=== PATIENT | female | born 1980 | race Caucasian/White ===

== ENCOUNTER 2018-02-26 11:40 | Emergency (ER) | payer OTHER ==
[2018-02-26 12:34] VITALS: BP 146/83; PULSE 79; TEMP 99.1; BMI 35.3
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
[2018-02-26] MEDS ORDERED: IBUPROFEN 600 MG TABLET (FP) PO ONE ×2 (13:27→13:29)
[2018-02-26] MEDS ORDERED: AMOX TR/POT CLAV 875MG/125MG TABLETS (FP) PO ONE (13:37)
[2018-02-26 13:50] LABS: BASO % 0.7 % (0-2.0); EOS % 1.3 % (0-4.5); HEMATOCRIT 32.3 % (32.4-45.2); HEMOGLOBIN 9.9 GM/dL (10.7-15.3); MCH 20.8 pg (25.7-33.7); MCHC 30.5 g/dl (32.0-36.0); MEAN CELL VOLUME 68.3 fl (80-96); MEAN PLT VOLUME 8.6 fl (7.5-11.1); PLATELET COUNT 293 K/MM3 (134-434); RBC 4.73 M/mm3 (3.60-5.2); RDW 26.1 % (11.6-15.6); WHITE BLOOD COUNT 6.8 K/mm3 (4.0-10.0)
[2018-02-26] MEDS ORDERED: ACETAMINOPHEN 500 MG TABLET (FP) ONE (13:50)
[2018-02-26 14:17] LABS: ALBUMIN 4.1 g/dl (3.4-5.0); ALK PHOS 73 U/L (45-117); ANION GAP 6 MMOL/L (8-16); BILIRUBIN,TOTAL 0.3 mg/dL (0.2-1); BLOOD UREA NITROGEN 11 mg/dL (7-18); CALCIUM 8.8 mg/dL (8.5-10.1); CHLORIDE 108 mmol/L (98-107); CO2 24 mmol/L (21-32); GLUCOSE,RANDOM 78 mg/dL (74-106); SGOT/AST 28 U/L (15-37); SGPT/ALT 28 U/L (13-61); SODIUM 139 mmol/L (136-145); TOT PROT 7.8 g/dl (6.4-8.2)
[2018-02-26] MEDS ORDERED: AMOX TR/POT CLAV 875MG/125MG TABLETS (FP) ONE (14:18)
[2018-02-26 14:40] LABS: ANISOCYTOSIS 1+; MACROCYTOSIS 1+; OVALOCYTE 1+
[2018-02-26] MEDS ORDERED: DIPHTH,PERTUSS(ACELL),TET 0.5 ML DISP.SYRIN IM ONE (15:52)
[2018-02-27 08:09] LABS: HBsAG SCREEN Negative (Negative)
== END 2018-02-26 16:21 | disposition home or self-care (01) ==
LOC: JERFT 11:40
PROC: 3E0234Z Introduction of Serum, Toxoid and Vaccine into Muscle, Percutaneous Approach (ICD-10-PCS; principal; 2018-02-26)
DX: S01.511A Laceration without foreign body of lip, initial encounter (principal); S61.451A Open bite of right hand, initial encounter; Y04.1XXA Assault by human bite, initial encounter; Y93.89 Activity, other specified; Y92.89 Other specified places as the place of occurrence of the external cause; Y99.8 Other external cause status; Y07.03 Male partner, perpetrator of maltreatment and neglect; D64.9 Anemia, unspecified
CPT/HCPCS: 36415; 73130-TC-RT-FY; 80053; 85025; 86317; 86803; 87340; 87389; 90715; 99281-25

== ENCOUNTER 2018-07-02 01:06 | Emergency (ER) | payer OTHER ==
[2018-07-02 01:23] VITALS: TEMP 97.9; BMI 28.7
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
[2018-07-02 02:14] VITALS: BP 113/66; PULSE 84
== END 2018-07-02 02:14 | disposition home or self-care (01) ==
LOC: JER 01:06
DX: T60.2X1A Toxic effect of other insecticides, accidental (unintentional), initial encounter (principal); R05 Cough; R06.02 Shortness of breath; Y92.038 Other place in apartment as the place of occurrence of the external cause
CPT/HCPCS: 99283-25

== ENCOUNTER 2018-11-19 03:56 | Emergency (ER) | payer OTHER ==
[2018-11-19 04:41] VITALS: TEMP 98.3
--- NOTE | 2018-11-19 04:49 | PDOC ---
Attending Attestation - Resident Resident Name: Shin Lopez - ED Attending Attestation I have performed the following: I have examined & evaluated the patient, The case was reviewed & discussed with the resident, I agree w/resident's findings & plan - HPI HPI: 11/19/18 06:21 38-year-old female complaining of vaginal bleeding, patient states she believes she may have been and passed a clot which might have been products of conception. 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
[2018-11-19] MEDS ORDERED: ACETAMINOPHEN 1000 MG/100 ML VIAL (NON FORMULARY) IVPB ONE (04:55)
[2018-11-19] MEDS ORDERED: ACETAMINOPHEN INJECTION 100 ML IVPB ONE (05:03)
--- NOTE | 2018-11-19 05:10 | PDOC ---
History of Present Illness - General Chief Complaint: Vaginal Bleeding Stated Complaint: VAGINAL BLEEDING, Time Seen by Provider: 11/19/18 04:28 History Source: Patient Exam Limitations: No Limitations - History of Present Illness Initial Comments: 11/19/18 05:09 38F A2 LMP October 01 who presents to the ER with complaints of vaginal bleeding. The patient states that she took 5 at home tests which were positive. She states that she spotted for "a couple days" approximately 1 month ago. Today, she passed a "large clot" which she believes may have been the fetus. She admits to a cough for 2 months but denies fever, chills, nausea, vomiting. She admits to a sharp abdominal pain in her periumbilicus. She denies dysuria. Past History - Past Medical History Allergies/Adverse Reactions: Allergies Allergy/AdvReac Type Severity Reaction Status Date / Time No Known Allergies Allergy Verified 11/19/18 04:41 Home Medications: Ambulatory Orders Amox-Tr/K Cl [Augmentin 875Mg Tablet] 1 tab PO BID #20 tablet 02/26/18 Naproxen [Naprosyn -] 500 mg PO BID #30 tablet 02/26/18 Anemia: Yes Asthma: Yes COPD: No - Immunization History Td Vaccination: Yes TDAP Vaccination: Yes Immunization Up to Date: Yes - Suicide/Smoking/Psychosocial Hx Smoking History: Current some day smoker Have you smoked in the past 12 months: Yes Number of Cigarettes Smoked Daily: 20 Information on smoking cessation initiated: No 'Breaking Loose' booklet given: 02/26/18 Hx Alcohol Use: No Drug/Substance Use Hx: No Review of Systems - Review of Systems Able to Perform ROS?: Yes Comments:: 11/19/18 05:29 GENERAL/CONSTITUTIONAL: No fever or chills. No weakness. HEAD, EYES, EARS, NOSE AND THROAT: No change in vision. No ear pain or discharge. No sore throat. CARDIOVASCULAR: No chest pain, palpitations, or lightheadedness. RESPIRATORY: No cough, wheezing, shortness of breath, or hemoptysis. GASTROINTESTINAL: + for abdominal pain. No nausea, vomiting, diarrhea, or constipation. GENITOURINARY: + for vaginal bleeding. No dysuria, frequency, hematuria, or change in urination. MUSCULOSKELETAL: No joint or muscle swelling or pain. No neck or back pain. SKIN: No rash or lesions. NEUROLOGIC: No headache, numbness, tingling, focal weakness, loss of consciousness, or change in strength/sensation. Is the patient limited Brazilian proficient: No *Physical Exam - Vital Signs Last Vital Signs Temp Pulse Resp BP Pulse Ox 98.3 F 85 16 137/88 100 11/19/18 03:56 11/19/18 03:56 11/19/18 03:56 11/19/18 03:56 11/19/18 03:56 - Physical Exam Comments: 11/19/18 05:49 GENERAL: Well developed, well nourished. Awake and alert. No acute distress. HEENT: Normocephalic, atraumatic. Hearing grossly normal. Moist mucous membranes. PERRLA, EOMI. No conjunctival pallor. Sclera are non-icteric. NECK: Supple. Full ROM. No JVD. CARDIOVASCULAR: Regular rate and rhythm. No murmurs, rubs, or gallops. PULMONARY: No evidence of respiratory distress. Lungs clear to auscultation bilaterally. No wheezing, rales or rhonchi. ABDOMINAL: Soft. TTP over umbilicus. Non-distended. No rebound or guarding. GENITOURINARY: No CVA tenderness bilaterally. : Cervical os closed. Gross blood noted. Normal exterior anatomy. MUSCULOSKELETAL: Normal range of motion at all joints. No bony deformities or tenderness. EXTREMITIES: No cyanosis. No clubbing. No edema. No calf tenderness or swelling. SKIN: Warm and dry. Normal capillary refill. No rashes. No jaundice. NEUROLOGICAL: Alert, awake, appropriate. Cranial nerves 2-12 grossly intact. Normal speech. Gait is normal without ataxia. PSYCHIATRIC: Cooperative. Good eye contact. Appropriate mood and affect. ED Treatment Course - LABORATORY CBC & Chemistry Diagram: 11/19/18 05:02 11/19/18 05:02 Medical Decision Making - Medical Decision Making 11/19/18 05:50 38F with positive home test who presents to the ER with vaginal bleeding and possibly passing a "large clot" which may have been her fetus. CBC shows Hgb of 7.9. Pt has not taken her iron "in a while". Asymptomatic otherwise. Pending beta-quant. Giving IV tylenol for pain control. 11/19/18 06:28 Pt has negative b-quant. UA shows 3+ LE with 2000+ RBC's, therefore inaccurate UA. Straight cath done and orders placed. 11/19/18 06:52 No urine obtained on straight cath. Will give abx and d/c home with PCP f/u. *DC/Admit/Observation/Transfer Diagnosis at time of Disposition: Suprapubic pressure - Discharge Dispostion Disposition: HOME Condition at time of disposition: Stable Decision to Admit order: No - Referrals - Patient Instructions Printed Discharge Instructions: Acute Abdominal Pain Additional Instructions: Your ER visit is not complete until your follow up with your primary care physician. Please follow up with your primary care physician in 1-2 days. Please return to the ER if you have any signs or symptoms of chest pain, shortness of breath, uncontrollable fever, chills, nausea, vomiting, numbness, tingling, or weakness in any part of your body, changes in vision, or slurred speech. Please take your medications as prescribed. Please return to the ER if symptoms persist, worsen, or new symptoms arise. - Post Discharge Activity
[2018-11-19 05:20] LABS: MEAN PLT VOLUME 8.5 fl (7.5-11.1); RBC 4.46 M/mm3 (3.60-5.2)
[2018-11-19 05:28] LABS: EOS % 3.3 % (0-4.5); HEMATOCRIT 26.3 % (32.4-45.2); HEMOGLOBIN 7.8 GM/dL (10.7-15.3); LYMPH % 28.8 % (8-40); MCHC 29.6 g/dl (32.0-36.0); MEAN CELL VOLUME 58.9 fl (80-96); MONO % 6.4 % (3.8-10.2); NEUT % 60.5 % (42.8-82.8); PLATELET COUNT 282 K/MM3 (134-434); RDW 19.2 % (11.6-15.6)
[2018-11-19 05:32] LABS: MCH 17.4 pg (25.7-33.7)
[2018-11-19 05:42] LABS: INR 0.9 (0.83-1.09); PROTHROMBIN TIME (PATIENT) 10.6 SEC (9.7-13.0)
[2018-11-19 05:57] LABS: ALBUMIN 3.5 g/dl (3.4-5.0); ALK PHOS 78 U/L (45-117); ANION GAP 6 MMOL/L (8-16); BILIRUBIN,TOTAL 0.3 mg/dL (0.2-1); BLOOD UREA NITROGEN 9.5 mg/dL (7-18); CALCIUM 8.3 mg/dL (8.5-10.1); CHLORIDE 110 mmol/L (98-107); CO2 25 mmol/L (21-32); CREATININE 0.9 mg/dL (0.55-1.3); GLUCOSE,RANDOM 87 mg/dL (74-106); SGOT/AST 19 U/L (15-37); SGPT/ALT 15 U/L (13-61); SODIUM 140 mmol/L (136-145); TOT PROT 6.6 g/dl (6.4-8.2)
[2018-11-19 06:00] LABS: URINE APPEARANCE TURBID; URINE BILIRUBIN MODERATE (NEGATIVE); URINE COLOR RED; URINE GLUCOSE (UA) NEGATIVE (NEGATIVE)
[2018-11-19 06:01] LABS: URINE KETONE NEGATIVE (NEGATIVE); URINE NITRITE POSITIVE (NEGATIVE); URINE PROTEIN 300 (NEGATIVE); URINE UROBILINOGEN 0.2 mg/dL (0.2-1.0)
[2018-11-19 06:02] LABS: URINE LEUK ESTERASE 3+ (NEGATIVE); URINE RBC 2633.1 /hpf (0-4)
[2018-11-19 06:03] LABS: EPI CELLS 3.8 /HPF (0-5/HPF); HYALINE CASTS 573.68 /lpf (0-8); URINE BACTERIA 18.9 /hpf (NEGATIVE)
[2018-11-19 06:48] LABS: ANISOCYTOSIS 2+; MACROCYTOSIS 0; PLATELET ESTIMATE NORMAL
[2018-11-19 07:01] VITALS: BP 125/68; PULSE 69
== END 2018-11-19 07:07 | disposition home or self-care (01) ==
LOC: JER 03:56
PROC: 3E033NZ Introduction of Analgesics, Hypnotics, Sedatives into Peripheral Vein, Percutaneous Approach (ICD-10-PCS; principal; 2018-11-19)
PROC: 0T9B70Z Drainage of Bladder with Drainage Device, Via Natural or Artificial Opening (ICD-10-PCS; 2018-11-19)
DX: R10.30 Lower abdominal pain, unspecified (principal)
CPT/HCPCS: 36415; 51701; 80053; 81003; 84702; 85025; 85610; 86850; 86900; 86901; 87086; 96374; 99282-25; J0131

== ENCOUNTER 2018-12-06 17:24 | Emergency (ER) | payer OTHER ==
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
[2018-12-06 17:30] VITALS: BP 108/52; PULSE 82; TEMP 98; BMI 30.2
[2018-12-06] MEDS ORDERED: ACETAMINOPHEN 325 MG TABLET (FP) PO ONE (17:58)
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
[2018-12-06] MEDS ORDERED: ACETAMINOPHEN 325 MG TABLET (FP) ONE (18:00)
[2018-12-06] MEDS ORDERED: CYCLOBENZAPRINE HCL 10 MG TABLET (FP) PO ONE (20:01)
[2018-12-06] MEDS ORDERED: KETOROLAC TROMETHAMINE 60 MG/2 ML VIAL IM ONE (20:01)
[2018-12-06] MEDS ORDERED: KETOROLAC TROMETHAMINE 60 MG/2 ML VIAL ONE (20:15)
[2018-12-06] MEDS ORDERED: CYCLOBENZAPRINE HCL 10 MG TABLET (FP) ONE (20:22)
== END 2018-12-06 20:24 | disposition home or self-care (01) ==
LOC: JER 17:24 → JERFT 17:24
PROC: 3E0233Z Introduction of Anti-inflammatory into Muscle, Percutaneous Approach (ICD-10-PCS; principal; 2018-12-06)
DX: S13.4XXA Sprain of ligaments of cervical spine, initial encounter (principal); V49.49XA Driver injured in collision with other motor vehicles in traffic accident, initial encounter; Y92.488 Other paved roadways as the place of occurrence of the external cause; Y93.89 Activity, other specified; Y99.8 Other external cause status
CPT/HCPCS: 70450-TC; 72125-TC; 84703; 99281-25

== ENCOUNTER 2019-01-14 14:27 | Emergency (ER) | payer OTHER | END 2019-01-14 17:10 | disposition home or self-care (01) | LOC: JER 14:27 ==

== ENCOUNTER 2019-05-28 15:34 | Emergency (ER) | payer OTHER ==
[2019-05-28 15:43] VITALS: TEMP 97.8; BMI 31.4
[2019-05-28] MEDS ORDERED: ACETAMINOPHEN 1000 MG/100 ML VIAL (NON FORMULARY) IVPB ONE (16:27)
[2019-05-28] MEDS ORDERED: SODIUM CHLORIDE 0.9% 500 ML INFUS.BAG IV ONE (16:27)
[2019-05-28] MEDS ORDERED: ONDANSETRON 4 MG/2 ML VIAL IVPUSH ONE (16:39)
[2019-05-28] MEDS ORDERED: ONDANSETRON 4 MG/2 ML VIAL ONE (16:57)
[2019-05-28 17:03] LABS: BASO % 1.1 % (0-2.0); EOS % 1.5 % (0-4.5); HEMOGLOBIN 7.2 GM/dL (10.7-15.3); LYMPH % 34.5 % (8-40); MCHC 27.7 g/dl (32.0-36.0); MEAN CELL VOLUME 60.8 fl (80-96); MEAN PLT VOLUME 8.6 fl (7.5-11.1); MONO % 5.8 % (3.8-10.2); NEUT % 57.1 % (42.8-82.8); PLATELET COUNT 328 K/MM3 (134-434); RBC 4.27 M/mm3 (3.60-5.2); RDW 20.4 % (11.6-15.6); WHITE BLOOD COUNT 6.9 K/mm3 (4.0-10.0)
[2019-05-28 17:07] LABS: MCH 16.9 pg (25.7-33.7)
[2019-05-28 17:30] LABS: ALBUMIN 3.2 g/dl (3.4-5.0); BILIRUBIN,TOTAL 0.2 mg/dL (0.2-1); BLOOD UREA NITROGEN 9.8 mg/dL (7-18); CALCIUM 8.2 mg/dL (8.5-10.1); CREATININE 0.9 mg/dL (0.55-1.3); TOT PROT 6.5 g/dl (6.4-8.2)
[2019-05-28 17:44] LABS: EPI CELLS 16.3 /HPF (0-5/HPF); HYALINE CASTS 6 /lpf (0-8); URINE APPEARANCE CLOUDY; URINE BACTERIA 919.4 /hpf (NEGATIVE); URINE BILIRUBIN NEGATIVE (NEGATIVE); URINE COLOR YELLOW; URINE GLUCOSE (UA) NEGATIVE (NEGATIVE); URINE KETONE NEGATIVE (NEGATIVE); URINE LEUK ESTERASE 2+ (NEGATIVE); URINE NITRITE NEGATIVE (NEGATIVE); URINE PROTEIN NEGATIVE (NEGATIVE); URINE RBC 1 /hpf (0-4); URINE UROBILINOGEN 0.2 mg/dL (0.2-1.0); URINE WBC 43 /hpf (0-5)
[2019-05-28] MEDS ORDERED: levoFLOXacin 750 MG TABLET PO ONE (18:15)
[2019-05-28 18:16] LABS: ANISOCYTOSIS 1+; OVALOCYTE 1+; PLATELET ESTIMATE ADEQUATE; TARGET CELLS 1+
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
[2019-05-28 18:58] VITALS: BP 123/66; PULSE 66
== END 2019-05-28 18:58 | disposition home or self-care (01) ==
LOC: JER 15:34
PROC: 3E033NZ Introduction of Analgesics, Hypnotics, Sedatives into Peripheral Vein, Percutaneous Approach (ICD-10-PCS; principal; 2019-05-28)
PROC: 3E033GC Introduction of Other Therapeutic Substance into Peripheral Vein, Percutaneous Approach (ICD-10-PCS; 2019-05-28)
DX: K52.9 Noninfective gastroenteritis and colitis, unspecified (principal); N12 Tubulo-interstitial nephritis, not specified as acute or chronic; N39.0 Urinary tract infection, site not specified; J45.909 Unspecified asthma, uncomplicated; D64.9 Anemia, unspecified
CPT/HCPCS: 36415; 71046-TC-FY; 80053; 81003; 84703; 85025; 99283-25; J0131